=== PATIENT | male | born 2000 | race Caucasian/White ===

== ENCOUNTER 2021-02-04 09:40 | Emergency (ER) | payer MEDICAID ==
[2021-02-04 09:42] VITALS: BP 118/66
[2021-02-04] MEDS ORDERED: LIDOCAINE-MPF 1%, 5ML ONE (10:12)
[2021-02-04] MEDS ORDERED: BUPIVACAINE/PF-EPI 0.25% 1:200K SQ ONE (10:30)
[2021-02-04] MEDS ORDERED: LIDOCAINE-MPF 1%, 5ML INFIL ONE (10:30)
[2021-02-04] MEDS ORDERED: BACITRACIN ZINC OINT 500U/GM, 0.9 GM ONE (10:44)
== END 2021-02-04 10:57 | disposition home or self-care (01) ==
LOC: ED 10:16
DX: L02.214 Cutaneous abscess of groin (principal)
CPT/HCPCS: 10060; 99283